=== PATIENT | female | born 1975 | race Caucasian/White ===

== ENCOUNTER 2020-07-15 14:02 | Inpatient (IN) | payer OTHER, SELFPAY ==
[~2020-07-15] VITALS: Ht 165.1 cm; Wt 92.5 kg
[2020-07-15 14:02] VITALS: BP_SYST 142
--- NOTE | 2020-07-15 14:02 | NUR ---
Patient to ER bed 3 to gown for evaluation. Side rails up.
--- NOTE | 2020-07-15 14:03 | NUR ---
Patient came via BLS from [facility] for nausea and vomiting x2 days.
--- NOTE | 2020-07-15 14:23 | NUR ---
ER Dr. Stevens at bedside examining patient.
[2020-07-15] MEDS ORDERED: ONDANSETRON HCL 4 MG/2 ML VIAL IVP ONE (14:30)
--- NOTE | 2020-07-15 14:47 | NUR ---
Report given to ROBSON Senior for continuation of care.
--- NOTE | 2020-07-15 14:50 | NUR ---
RECEIVED REPORT FROM ROBSON PADILLA. WILL ASSUME CARE OF PATIENT.
--- NOTE | 2020-07-15 15:20 | NUR ---
PT PROVIDED URINE SAMPLE, SENT TO LAB FOR ANALYSIS.
[2020-07-15 15:32] LABS: BASOPHILS # (AUTO) 0.3 K/uL (0.0-0.2); BASOPHILS % (AUTO) 2.9 % (0.0-2.0); EOSINOPHILS % (AUTO) 0.3 % (0.0-4.0); HEMATOCRIT 43.9 % (36-48); LYMPHOCYTES # (AUTO) 2.5 K/uL (1.0-5.5); LYMPHOCYTES % (AUTO) 25.6 % (20.5-51.5); MEAN CORPUSCULAR HEMOGLOBIN 31 pg (27-31); MEAN CORPUSCULAR HGB CONC 34 % (32-36); MEAN CORPUSCULAR VOLUME 92 fL (79.0-98.0); MONOCYTES % (AUTO) 10.7 % (1.7-9.3); NEUTROPHILS # (AUTO) 5.9 K/uL (1.8-7.7); NEUTROPHILS % (AUTO) 60.5 % (40.0-70.0); PLATELET COUNT (AUTO) 193 K/uL (130-430); RED CELL DISTRIBUTION WIDTH 13.7 % (9.0-15.0); WHITE BLOOD COUNT (AUTO) 9.7 K/uL (4.8-10.8)
[2020-07-15 15:56] LABS: BILIRUBIN,URINE NEGATIVE (NEGATIVE); BLOOD, URINE NEGATIVE (NEGATIVE); CLARITY/URINE CLEAR (CLEAR); COLOR,URINE YELLOW (YELLOW); GLUCOSE,URINE 1+ (NEGATIVE); KETONES,URINE TRACE (NEGATIVE); LEUKOCYTE ESTERASE ,URINE TRACE (NEGATIVE); NITRITE, URINE NEGATIVE (NEGATIVE); PROTEIN URINE NEGATIVE (NEGATIVE); UROBILINOGEN,URINE 0.2 (0.2-1.0)
[2020-07-15 16:12] LABS: BACTERIA,URINE RARE /HPF (None Seen); MUCUS,URINE None Seen /LPF (None Seen); RBC,URINE 0-3 /HPF (0-3); WBC,URINE 0-3 /HPF (0-3)
--- NOTE | 2020-07-15 16:20 | NUR ---
ADMIT ORDERS OBTAINED FROM MD HOLLOWAY TO ADMIT TO MS. BED REQUESTED BY CHARGE NURSE.
--- NOTE | 2020-07-15 16:25 | NUR ---
COVID SWAB OBTAINED AND SENT FOR ANALYSIS.
[2020-07-15] MEDS ORDERED: LIDOCAINE VISCOUS 2%, 15 ML UDC MM ONE (16:30)
[2020-07-15] MEDS ORDERED: PROMETHAZINE HCL 25 MG TABLET PO PRN (16:30)
[2020-07-15] MEDS ORDERED: MAG-AL HYDROX/SIMETH 30 ML UDC PO ONE (16:30)
[2020-07-15] MEDS ORDERED: LORazepam 2 MG/ML VIAL IVP ONE (16:30)
[2020-07-15] MEDS ORDERED: BELLADONNA ALKALOIDS/PHENOBARB 5 ML UDC PO ONE (16:30)
[2020-07-15] MEDS ORDERED: NACL 0.9% 1,000 ML IV ONE (16:30)
[2020-07-15 16:31] LABS: CALCIUM 10.6 mg/dL (8.4-11.0); CREATININE 1.9 mg/dL (0.55-1.30); POTASSIUM 3.7 mmol/L (3.5-5.1)
[2020-07-15] MEDS ORDERED: ZOLP5TAB2 PO (16:36)
[2020-07-15] MEDS ORDERED: GLUC1VIA4 I.M. (16:36)
[2020-07-15] MEDS ORDERED: PRO40 PO (16:36)
[2020-07-15] MEDS ORDERED: ANT30 PO (16:36)
[2020-07-15] MEDS ORDERED: INSU100V42 SUBCUT (16:36)
[2020-07-15] MEDS ORDERED: GLU500 PO (16:36)
[2020-07-15] MEDS ORDERED: LORA-258 PO (16:36)
[2020-07-15] MEDS ORDERED: MOM PO (16:36)
[2020-07-15] MEDS ORDERED: LORA2VIA32 IJ (16:36)
[2020-07-15] MEDS ORDERED: MULT-1117 PO (16:36)
[2020-07-15] MEDS ORDERED: ARIP10TA9 PO (16:36)
--- NOTE | 2020-07-15 16:36 | NUR ---
PATIENT TAKEN TO CT SCAN WITH RADIOLOGY STAFF.
[2020-07-15 16:37] LABS: ALBUMIN 3.8 g/dL (3.4-4.8); TOTAL BILIRUBIN 0.4 mg/dL (0.0-1.0)
[2020-07-15] MEDS ORDERED: LORazepam 2 MG/ML VIAL ONE (16:39)
[2020-07-15] MEDS ORDERED: DICYCLOMINE HCL 10 MG/5 ML SOLUTION PO ONE (16:45)
--- NOTE | 2020-07-15 16:50 | NUR ---
PT BACK FROM CT, ATTACHED TO MONITOR.
--- NOTE | 2020-07-15 17:07 | NUR ---
Patient will be admitted to care of DR. HOLLOWAY. Admitted to MED-SURG unit. Will go to room 116B. Belongings list completed. Complete and up to date summary report printed. SBAR report to be given at bedside with opportunity for questions.
[2020-07-15] MEDS ORDERED: METOCLOPRAMIDE HCL 10 MG/2 ML VIAL IVP PRN (18:30)
[2020-07-15] MEDS ORDERED: ONDANSETRON HCL 4 MG/2 ML VIAL IVP PRN (18:30)
[2020-07-15] MEDS ORDERED: MORPHINE 4 MG/ML INJ. SYRINGE IVP PRN (18:30)
[2020-07-15] MEDS ORDERED: DEXTROSE 50% JECT 50 ML DISP.SYRIN IVP PRN (18:30)
[2020-07-15] MEDS ORDERED: ACETAMINOPHEN 325 MG TABLET PO PRN (18:30)
[2020-07-15] MEDS ORDERED: MORPHINE 2 MG/ML INJ. SYRINGE IVP PRN (18:30)
--- NOTE | 2020-07-15 20:29 | NUR ---
Alex Lozano s/w Linh
[2020-07-15] MEDS: LORazepam 1 MG TABLET PO PRN (23:00)
[2020-07-16] MEDS: D5NS 1,000 ML IV SCH ×3 (00:17→14:30)
[2020-07-16] MEDS: INSULIN REGULAR, HUMAN 100 UNITS/ML, 10 ML VIAL (humuLIN R) SUBCUT PRN ×2 (00:25→11:37)
--- NOTE | 2020-07-16 01:23 | NUR ---
Consultation Paged Reason for Consultation: psychosis Was consult called: Y Person who was notified: Lara Consulting Physician: Dr. Ordonez Ordering Physician: Dr. Lozano
[2020-07-16] MEDS: LORazepam 1 MG TABLET PO PRN ×2 (04:13→17:17)
[2020-07-16 06:59] LABS: BASOPHILS # (AUTO) 0.1 K/uL (0.0-0.2); BASOPHILS % (AUTO) 0.8 % (0.0-2.0); EOSINOPHILS # (AUTO) 0.1 K/uL (0.0-0.4); EOSINOPHILS % (AUTO) 0.6 % (0.0-4.0); HEMATOCRIT 42.1 % (36-48); HEMOGLOBIN 14.3 g/dL (12.0-16.0); LYMPHOCYTES # (AUTO) 4.6 K/uL (1.0-5.5); LYMPHOCYTES % (AUTO) 46.9 % (20.5-51.5); MEAN CORPUSCULAR HEMOGLOBIN 31 pg (27-31); MEAN CORPUSCULAR HGB CONC 34 % (32-36); MEAN CORPUSCULAR VOLUME 92 fL (79.0-98.0); MONOCYTES # (AUTO) 1.1 K/uL (0.0-1.0); MONOCYTES % (AUTO) 10.7 % (1.7-9.3); PLATELET COUNT (AUTO) 172 K/uL (130-430); RED BLOOD CELL COUNT(AUTO) 4.56 MIL/uL (4.2-6.2); RED CELL DISTRIBUTION WIDTH 13.5 % (9.0-15.0); WHITE BLOOD COUNT (AUTO) 9.9 K/uL (4.8-10.8)
[2020-07-16 07:22] LABS: INR 1.1 (0.8-1.2)
[2020-07-16 07:53] LABS: ALBUMIN 3.5 g/dL (3.4-4.8); CREATININE 1.86 mg/dL (0.55-1.30); POTASSIUM 3.3 mmol/L (3.5-5.1); TOTAL BILIRUBIN 0.3 mg/dL (0.0-1.0)
[2020-07-16 08:00] VITALS: BP_SYST 130
--- NOTE | 2020-07-16 10:28 | NUR ---
PAGED DR. HOLLOWAY DUE TO PATIENT WANTING TO EAT WITH NO SIGNS OF NAUSEA OR VOMITING SINCE YESTERDAY .
--- NOTE | 2020-07-16 10:56 | NUR ---
SS notes: GRANITE CUTTER attempted to phone Ingrid Clarke (board and care admin) @ [phone] and left a message to call back. GRANITE CUTTER met with patient at bedside. Information received from patient and from Cecilio with [facility] where the patient was admitted from. Pt is alert and oriented x3, calm, cooperative throughout the conversation but a poor historian. Pt states she has been living at the halfway for 4 years. Pt is independent with ADLs and does not utilize any DME. Pt states her facility brought her to [facility] where she voluntarily admitted self. Per Cecilio, pt had suicide ideation by wanting to walk into traffic to get hit by car, and had some audio hallucinations, which the patient denies currently. Pt states she is no longer have A/V hallucinations and wishes to go back to her board and care in [place] when discharged. Pt states she has been admitted in an inpatient psychiatric setting in the past ([facility], and [facility]?), but does not know her psych diagnosis. Pt does not have information on which psychiatrist/therapists she sees. SS will remain available
--- NOTE | 2020-07-16 11:04 | NUR ---
CONSULTATION PAGED/CALLED Reason for Consultation: vomiting Person Who was Notified: Marisa Consulting Physician: Jaden Hsu< production machine computer operator> Mailing Clerk Specialty: GI Ordering Physician:
--- NOTE | 2020-07-16 11:14 | NUR ---
CONSULTED DR. SUE REGARDING THE PATIENTS CONDITION. PATIENT HASN'T HAD ANY NAUSEA OR VOMITING SINCE EARLY YESTERDAY. PATIENT IS PERSISTENTLY INQUIRING OF EATING. ORDERS TO BE PUT IN ACCORDING TO DR. SUE.
[2020-07-16] MEDS ORDERED: PANTOPRAZOLE SODIUM 40 MG/VIAL (PROTONIX) IVP ONE (11:30)
[2020-07-16 11:37] VITALS: BP_SYST 147
[2020-07-16 15:51] VITALS: BP_SYST 127
[2020-07-16 20:05] VITALS: BP_SYST 160
[2020-07-17] MEDS: D5NS 1,000 ML IV SCH ×3 (00:30→20:30)
[2020-07-17 00:45] VITALS: BP_SYST 125
[2020-07-17] MEDS: LORazepam 1 MG TABLET PO PRN ×4 (06:13→19:59)
[2020-07-17] MEDS: INSULIN REGULAR, HUMAN 100 UNITS/ML, 10 ML VIAL (humuLIN R) SUBCUT PRN ×2 (06:54→17:48)
[2020-07-17 08:00] VITALS: BP_SYST 123
[2020-07-17] MEDS: PANTOPRAZOLE SODIUM 40 MG/VIAL (PROTONIX) IVP SCH (08:25)
--- NOTE | 2020-07-17 10:24 | NUR ---
CONSULTATION PAGED/CALLED Reason for Consultation: CONFUSION Person Who was Notified: ROBERT Consulting Physician: MARTÍN Erp Technical Lead Specialty: PSYCH Ordering Physician: JEWEL CALLED [facility] AND SENT DOCTOR A TEXT
--- NOTE | 2020-07-17 11:15 | NUR ---
IV HAS INFILTRATED. ATTEMPTED TO TRY TO GIVE PATIENT ANOTHER ONE HOWEVER SHE REFUSED TO GET ANOTHER ONE. STATED SHE DOESN'T NEED ONE DUE TO HER EATING AND DRINKING.
--- NOTE | 2020-07-17 11:38 | NUR ---
Dietitian Recommendations *Recommend: Full liquid CCHO diet, Glucerna TID. *Recommend: advance diet when medically appropriate. (CCHO diet) *Encourage PO intake. Please see Nutritional Assessment for details. FLORENCE SHIN
--- NOTE | 2020-07-17 11:51 | NUR ---
CALLED LAB REGARDING STAT ORDERS TO BE DONE
[2020-07-17 12:32] VITALS: BP_SYST 122
[2020-07-17 12:46] LABS: CALCIUM 8.9 mg/dL (8.4-11.0); CREATININE 1.57 mg/dL (0.55-1.30); POTASSIUM 3.5 mmol/L (3.5-5.1)
[2020-07-17 12:52] LABS: ALBUMIN 3.5 g/dL (3.4-4.8); TOTAL BILIRUBIN 0.3 mg/dL (0.0-1.0)
--- NOTE | 2020-07-17 13:04 | NUR ---
PAGED DR. PORRAS REGARDING LAB RESULTS HE REQUESTED.
--- NOTE | 2020-07-17 13:42 | NUR ---
PAGED PAGED ANTHONY CIFUENTES AT [phone] SPOKE WITH MANOJ.
--- NOTE | 2020-07-17 13:58 | NUR ---
SPOKE TO THE GUEST ATTENDANT REGARDING THE PATIENTS DISCHARGE. PATIENT IS TO BE DISCHARGED. HOWEVER SHE CAME FROM THE PSYCH FACILITY. SINCE SHE DID VOLUNTEER HERSELF THERE SHE HAS A CHOICE TO NOT GO BACK. SHE HAS REFUSED TO GO BACK INFORMING ME OF THIS AND ALSO THE GUEST ATTENDANT. PATIENT WILL BE DISCHARGED BACK TO HER INTERMEDIATE SINCE THAT IS WHERE SHE WANTS TO GO BACK TO. THE GUEST ATTENDANT STATED THAT SHE SPOKE TO SOMEONE FROM THE INTERMEDIATE THAT WAS ABLE TO COME AND TRANSPORT THE PATIENT BACK. 1405 SPOKE TO SOMEONE AT THE INTERMEDIATE AT [phone] WHO CONTACTED THE DIRECTOR ROJELIO GORDON AT [phone] WHOM INFORMED ME TO CALL WILLIAM AT [phone] HOWEVER NO ANSWER, AND THE VOICEMAIL WAS TO FULL TO LEAVE A MESSAGE.
--- NOTE | 2020-07-17 16:28 | NUR ---
I had a conference call with intermediate: Jaci Page [phone],Isacc Lr,Sita Carpenter [phone] and Carlyle Ruiz [phone]. They stated the patient cannot go back to her [facility] until her renal status is well documented by Dr Lozano and her med reconciliation has all of her home medications on it that she was taking when she left the [facility]. They are sending me a copy of her home medications to review with Dr Lozano. I spoke to Dr Lozano and told him the patient could not be discharged today-the [facility] will not accept her.
[2020-07-17 16:32] VITALS: BP_SYST 117
--- NOTE | 2020-07-17 17:05 | NUR ---
PATIENT IS VERY ADAMANT ON LEAVING AND GOING BACK TO HER JAIL. SHE ISN'T ALWAYS COOPERATIVE AT TIMES AND VERY FORGETFUL. CONTINUES TO COME OUT THE ROOM AND DEMAND TO GO HOME AND ASK FOR MORE SODA. HER BLOOD SUGAR IS TO HIGH TO CONTINUE TO DRINK SODA. SHE ASK THE SAME THINGS OVER AND OVER AGAIN. PATIENT TAKES MEDICATION DIRECTED AND WILL GO BACK INTO HER ROOM DIRECTED BUT CONSISTENTLY DOES THE SAME THING OVER AGAIN.
[2020-07-17 20:00] VITALS: BP_SYST 122
[2020-07-17] MEDS ORDERED: ARIPiprazole 5 MG TAB PO SCH (21:00)
[2020-07-17] MEDS ORDERED: ZOLPIDEM TARTRATE 5 MG TABLET PO SCH (21:00)
[2020-07-18] MEDS: LORazepam 1 MG TABLET PO PRN (02:56)
[2020-07-18] MEDS: D5NS 1,000 ML IV SCH (06:30)
[2020-07-18] MEDS: PANTOPRAZOLE SODIUM 40 MG/VIAL (PROTONIX) IVP SCH (07:56)
[2020-07-18 08:00] VITALS: BP_SYST 127
[2020-07-18 09:02] LABS: CALCIUM 9.1 mg/dL (8.4-11.0); CREATININE 1.7 mg/dL (0.55-1.30)
[2020-07-18 10:22] VITALS: BP_SYST 123
--- NOTE | 2020-07-18 11:00 | NUR ---
PATIENT REFUSED TO ALLOW US TO CLEAN HER UP OR CHANGE CLOTHES. NO CURRENT IV DUE TO PATIENT REFUSING. NO MEDICATION GIVEN BESIDES ATIVAN. PATIENT STILL ALERT AND ORIENTED. [facility] LINGUIST TIME SCHEDULED FOR 12 AND PATIENT IS CURRENTLY READY TO GO.
--- NOTE | 2020-07-18 11:15 | NUR ---
PATIENT HAS BEEN INFORMED THAT SHE IS GOING BACK TO THE HOSPITAL TODAY.
[2020-07-18 11:47] VITALS: BP_SYST 123
[2020-07-18] MEDS: INSULIN REGULAR, HUMAN 100 UNITS/ML, 10 ML VIAL (humuLIN R) SUBCUT PRN (12:20)
--- NOTE | 2020-07-18 12:28 | NUR ---
REPORT GIVEN TO ALEJA MONSALVE TO [facility] WHOM CALLED EARLIER REGARDING THE PATIENT. PATIENT IS BEING PICKED UP BY TRANSPORT WE SPEAK. ALL BELONGINGS GIVEN TO PATIENT.
--- NOTE | 2020-07-18 12:41 | NUR ---
[facility]: Information received from Cecilio, Solution Lead [facility]. Pt is accepted to room 106/A, Dr. Dupree is the accepting MD and nurse to nurse report to [phone]. [facility] arranged for cotton picker. Packet to unit and RN made aware.
--- NOTE | 2020-07-18 15:54 | NUR ---
Received a phone call from Carlyle Ruiz at [facility]. Faxed info requested regarding patient's transfer back to [facility] In patient psychiatric facility
== END 2020-07-18 12:25 | DRG 682 ==
LOC: SED 14:02 → SMU 16:20
PROVIDERS: ADMIT Internal Medicine Hospice and Palliative Medicine; ATTEND Internal Medicine Hospice and Palliative Medicine
DX: N17.9 Acute kidney failure, unspecified (principal); R65.11 Systemic inflammatory response syndrome (SIRS) of non-infectious origin with acute organ dysfunction; I10 Essential (primary) hypertension; E11.9 Type 2 diabetes mellitus without complications; E66.9 Obesity, unspecified; F29 Unspecified psychosis not due to a substance or known physiological condition; Z60.2 Problems related to living alone; Z20.822 Contact with and (suspected) exposure to COVID-19; E86.0 Dehydration; F32.9 Major depressive disorder, single episode, unspecified; Z88.8 Allergy status to other drugs, medicaments and biological substances; Z79.899 Other long term (current) drug therapy; Z79.4 Long term (current) use of insulin; Z68.33 Body mass index [BMI] 33.0-33.9, adult
CPT/HCPCS: 36415; 76376; 76700-TC; 80048; 80053; 81000-TC; 82962; 83690-TC; 85025; 85610-TC; 85730-TC; 87081; 96361; 96374; 96375; C9113; J1815; J2001; J2060; J2270; J2405; J7042; J7060; J7120